=== PATIENT | female | born 1960 ===

== ENCOUNTER 2018-03-04 10:13 | Emergency (ER) | payer OTHER ==
[~2018-03-04] VITALS: Ht 165.1 cm; Wt 55.3 kg
[~2018-03-04 10:13] MED LIST: PREVACID15 MG PO
== END 2018-03-04 16:30 | disposition home or self-care (01) ==
LOC: ER 10:13
DX: R53.1 Weakness (principal); M54.2 Cervicalgia

== ENCOUNTER 2024-03-23 07:40 | Outpatient (CLI) | payer OTHER | END 2024-03-23 07:50 | disposition home or self-care (01) | LOC: TOM 07:40 | PROVIDERS: ATTEND Internal Medicine Cardiovascular Disease | DX: R10.9 Unspecified abdominal pain (principal) ==